=== PATIENT | male | born 1965 | race Caucasian/White ===

== ENCOUNTER 2018-08-14 10:17 | Day surgery (SDC) | payer BC, OTHER ==
[~2018-08-14 10:17] MED LIST: Lactated Ringers 1,000 ML IV SCH
[2018-08-14] MEDS ORDERED: fentaNYL 100 MCG/2 ML SDV ONE (11:08)
[2018-08-14] MEDS ORDERED: Propofol 200 MG/20 ML SDV ONE ×2 (11:08→11:43)
--- NOTE | 2018-08-14 15:08 | OR ---
PREOPERATIVE DIAGNOSIS: Screening colonoscopy. POSTOPERATIVE DIAGNOSIS: Screening colonoscopy. PROCEDURE PERFORMED: Colonoscopy with polypectomy at 20 cm and at 50 cm. INDICATION: The patient is a 52-year-old male, who presents for his first screening colonoscopy at this time. PROCEDURE DETAILS: Procedure was done in the endoscopy suite. Sedation was given per Anesthesia. He was placed in left lateral position. First, a rectal exam was done, was normal. Scope was introduced into the rectum, slowly advanced to the rectum, sigmoid, descending, transverse, and ascending colon until the cecum was reached. Upon reaching the cecum, scope was withdrawn looking at all mucosal surface on the way out. No mucosal abnormalities, lesions, or polyps were noted until I reached approximately 50 cm where a small polyp was noted, removed by hot looped forceps. Going further down the colon at approximately 20 cm, a second polyp was noted. This one was small, but had a stalk on it. Again, removed by hot loop forceps. Both were sent to pathology. The remainder exam was normal. FINAL DIAGNOSIS: Polyp at 20 cm and polyp at 50 cm. BKD: 08/14/2018 12:10:58 MODL: 08/14/2018 15:02:03 /[id number]
== END 2018-08-14 13:12 | disposition home or self-care (01) ==
LOC: VM.SDS 10:17
PROVIDERS: ATTEND Surgery
DX: Z12.11 Encounter for screening for malignant neoplasm of colon (principal); K51.40 Inflammatory polyps of colon without complications; I10 Essential (primary) hypertension; E78.5 Hyperlipidemia, unspecified
CPT/HCPCS: J2704; J3010; J7120

== ENCOUNTER 2020-11-01 07:39 | Emergency (ER) | payer BC ==
[2020-11-01] MEDS ORDERED: Proparacaine 0.5% Ophth Soln 15 ML Bottle EYELF PRN (07:47)
[2020-11-01] MEDS ORDERED: Fluorescein 1 MG Ophth Strip EYELF ONE (07:48)
[2020-11-01] MEDS ORDERED: Take Home: Acetaminophen/HYDROcodone 325-5 MG, 5 Tab Pack PO ONE (08:18)
[2020-11-01] MEDS ORDERED: Ciprofloxacin 0.3% Ophth Soln 2.5 ML Bottle EYELF ONE (08:18)
--- NOTE | 2020-11-01 08:22 | EDM.PDOC ---
ED HPI GENERAL MEDICAL PROBLEM - General Chief Complaint: ENT Problem Stated Complaint: SOMETHING IN L EYE Time Seen by Provider: 11/01/20 08:01 Source of Information: Reports: Patient History Limitations: Reports: No Limitations - History of Present Illness INITIAL COMMENTS - FREE TEXT/NARRATIVE: Patient comes emergency department today from home with complaints of pain to his left eye. This patient was working on a ceiling last night when he felt something fall into his left eye. He attempted to rinse his eye multiple times last night. When he woke up this morning he continued to have the sensation of a foreign body and had pain on his eye. He has no double vision. Not really any change in visual acuity. He does have some blurriness. He has some clear drainage from the eye. He has rinsed it multiple times again this morning but continues to have the foreign body sensation. No Covid exposure no Covid symptoms. Left Eye Pain Score (Numeric/FACES): 2 - Related Data Allergies Allergy/AdvReac Type Severity Reaction Status Date / Time yellow jacket venom Allergy Anaphylactic Uncoded 11/01/20 08:07 Shock Home Meds: Home Meds EPINEPHrine [Epinephrine] 1 injection IM ASDIRECTED PRN 08/10/18 [History] Lisinopril 1 tab PO DAILY 08/10/18 [History] atorvaSTATin [Lipitor] 20 mg PO BEDTIME 08/10/18 [History] Past Medical History Cardiovascular History: Reports: High Cholesterol, Hypertension Respiratory History: Reports: Pneumonia, Recurrent Gastrointestinal History: Reports: Diverticulosis, Hemorrhoids Genitourinary History: Reports: None Musculoskeletal History: Reports: Back Pain, Chronic Neurological History: Reports: None Psychiatric History: Reports: None Endocrine/Metabolic History: Reports: None Hematologic History: Reports: None Immunologic History: Reports: None Oncologic (Cancer) History: Reports: None Dermatologic History: Reports: None - Past Surgical History Head Surgeries/Procedures: Reports: None HEENT Surgical History: Reports: Naso-Sinus Surgery, Other (See Below) Other HEENT Surgeries/Procedures: Mandiable surgery Cardiovascular Surgical History: Reports: None GI Surgical History: Reports: None Male Surgical History: Reports: None Endocrine Surgical History: Reports: None Musculoskeletal Surgical History: Reports: Other (See Below) Other Musculoskeletal Surgeries/Procedures:: Lumbar discectomy Social & Family History - Tobacco Use Tobacco Use Status *Q: Never Tobacco User ED ROS ENT - Review of Systems Review Of Systems: Comprehensive ROS is negative, except as noted in HPI. ED EXAM, ENT - Physical Exam Exam: See Below Exam Limited By: No Limitations General Appearance: Alert, WD/WN Eye Exam: Left Eye: Corneal Abrasion (Under fluorescein stain after the eye was anesthetized with proparacaine identified a small corneal abrasion at the 12 o'clock position just above the iris on the cornea. There is no foreign material debris. There is no injection of the conjunctive a.), Bilateral Eye: EOMI, PERRL Ears: Normal External Exam Nose: Normal Inspection, Normal Mucousa Mouth/Throat: Normal Inspection, Normal Gums Head: Atraumatic, Normocephalic Neck: Normal Inspection, Supple, Non-Tender Respiratory/Chest: No Respiratory Distress Cardiovascular: Normal Peripheral Pulses Extremities: Normal Inspection Neurological: Alert, Oriented Skin: Warm, Dry, Intact, Normal Color Course - Vital Signs Last Recorded V/S: Last Vital Signs Temp 98.2 F 11/01/20 07:45 Pulse 63 11/01/20 07:45 Resp 16 11/01/20 07:45 BP 144/92 H 11/01/20 07:45 Pulse Ox 98 11/01/20 07:45 - Orders/Labs/Meds Meds: Medications Discontinued Medications Generic Name Dose Route Start Last Admin Trade Name Freq PRN Reason Stop Dose Admin Hydrocodone Bitart/Acetaminophen 1 packet 11/01/20 08:18 11/01/20 08:25 Take Home: Acetam/Hydrocodon 325-5 Mg, 5 Pack PO 11/01/20 08:19 1 packet ONETIME ONE Administration Ciprofloxacin 1 ml 11/01/20 08:18 11/01/20 08:25 Ciloxan 0.3% Ophth Soln EYELF 11/01/20 08:19 2 drop ONETIME ONE Administration Fluorescein Sodium 1 mg 11/01/20 07:48 11/01/20 07:57 Ful-Mansi EYELF 11/01/20 07:49 1 mg ONETIME ONE Administration Proparacaine HCl 1 ml 11/01/20 07:47 11/01/20 07:57 Proparacaine 0.5% Ophth Soln EYELF 2 drop ASDIRECTED PRN Administration Other - Re-Assessments/Exams Free Text/Narrative Re-Assessment/Exam: 11/01/20 Under fluorescein staining after proparacaine administration it was identified the patient had a corneal abrasion. He was started on Cipro drops. Discussed the importance of the natural sequelae of this disease that in 24 hours he shoul d be 90% better in 48 hours 100% better. If he is not improving in this fashion he needs to be rechecked by ophthalmology or optometry. He was also given hydrocodone for pain. Is understanding of this. His questions are answered. Departure - Departure Time of Disposition: 08:18 Disposition: Home, Self-Care 01 Clinical Impression: Corneal abrasion Qualifiers: Encounter type: initial encounter Laterality: left Qualified Code(s): S05.02XA - Injury of conjunctiva and corneal abrasion without foreign body, left eye, initial encounter - Discharge Information Instructions: Corneal Abrasion, [id number] Referrals: Elisabet Watt DO [Primary Care Provider] - Forms: ED Department Discharge Additional Instructions: Tylenol and or Ibuprofen as needed for pain. No contact lenses for 1 week. Cipro eye drops 2 drops to the left eye every 4 hrs for the next 5 days. Bottle dispensed from the ED. If pain not controlled with above. [place] 1 tablet every 6 hrs with food as needed for pain. Caution sedation. Take home pack given from the ED. You should be 90% better in 24 hours and 100% better in 48 hrs. If you are not following that pattern see optometry or ophthalmology. Return to the ED if new or worsening symptoms. Follow up as above. Sepsis Event Note (ED) - Evaluation Sepsis Screening Result: No Definite Risk
== END 2020-11-01 08:36 | disposition home or self-care (01) ==
LOC: VM.ED 07:39
DX: S05.02XA Injury of conjunctiva and corneal abrasion without foreign body, left eye, initial encounter (principal); I10 Essential (primary) hypertension; E78.00 Pure hypercholesterolemia, unspecified; Z79.899 Other long term (current) drug therapy; Z91.038 Other insect allergy status; X58.XXXA Exposure to other specified factors, initial encounter
CPT/HCPCS: 99283; A9270